=== PATIENT | female | born 1950 | race Caucasian/White ===

== ENCOUNTER 2018-10-23 11:11 | Day surgery (SDC) | payer MEDICARE ==
[2018-10-23] MEDS ORDERED: Depo-Medrol 40 MG/ML IM ONE (11:12)
[2018-10-23] MEDS ORDERED: Marcaine 0.5% SDV 10 ML IJ ONE (11:12)
[2018-10-23] MEDS ORDERED: Ketamine HCl 50 MG/ML ONE (11:52)
[2018-10-23] MEDS ORDERED: DIPRIVAN 200 MG/20 ML IV ONE (11:52)
--- NOTE | 2018-10-23 12:51 | XRAY ---
15 seconds fluoroscopy time in surgery for right SI joint injection.
--- NOTE | 2018-10-23 12:51 | XRAY ---
Indication: Right SI joint injection. Intraoperative fluoroscopy was provided for 15 seconds. 2 digital spot images submitted for interpretation demonstrates posterior needle tip projecting over the inferior right SI joint. Correlate with intraoperative findings/report.
[2018-10-23 13:03] LABS: Specific Gravity 1.016 (1.005-1.025)
[2018-10-23 13:10] LABS: Amphetamine,Urine NEGATIVE (NEGATIVE); Barbiturate,Urine NEGATIVE (NEGATIVE); Benzodiazepine,Urine NEGATIVE (NEGATIVE); CREATININE,URINE RANDOM 100.4 MG/DL; Cocaine,Urine NEGATIVE (NEGATIVE); Methadone,Urine NEGATIVE (NEGATIVE); Opiate,Urine POSITIVE (NEGATIVE); PCP,Urine NEGATIVE (NEGATIVE); THC,Urine NEGATIVE (NEGATIVE)
[2018-10-23] MEDS ORDERED: Lactated Ringers 1,000 ML IV ONE (13:46)
== END 2018-10-23 12:25 | disposition home or self-care (01) ==
LOC: SDC-PAIN 11:11
PROVIDERS: ATTEND Psychiatry & Neurology Pain Medicine
DX: M46.1 Sacroiliitis, not elsewhere classified (principal); I10 Essential (primary) hypertension; K21.9 Gastro-esophageal reflux disease without esophagitis; K51.90 Ulcerative colitis, unspecified, without complications; F32.9 Major depressive disorder, single episode, unspecified; Z79.899 Other long term (current) drug therapy
CPT/HCPCS: 72020; 77002; 80307; 81002; 82570; 83986; G0260; 27096; J1030; J2704